=== PATIENT | male | born 1955 | race Caucasian/White ===

== ENCOUNTER 2019-10-11 18:11 | Emergency (ER) | payer BC, SELFPAY ==
--- NOTE | ~2019-10-11 | XR_ITS ---
EXAMINATION: XR chest 2V 10/11/2019 19:02 INDICATION: Dizziness. History of ascending thoracic aortic aneurysm. PROCEDURE: 2 view chest COMPARISON: 12/13/2016 FINDINGS: The lungs are clear. The cardiomediastinal silhouette is within normal limits. There are no pleural effusions. There is no pneumothorax suspected. IMPRESSION: 1: NO ACUTE CARDIOPULMONARY DISEASE. Reviewed, dictated and finalized at location A. LE SCHOOL MUSIC TEACHER
[2019-10-11 18:15] VITALS: BP 199/103; PULSE 60; RESP 12; TEMP 36.8; O2SAT 99
--- NOTE | 2019-10-11 18:27 | ECG_ITS ---
Measurements Intervals [place] Rate: 60 P: 58 SD: 170 QRS: 37 QRSD: 93 T: 44 QT: 397 QTc: 398 Interpretive Statements SINUS RHYTHM NORMAL ECG Electronically Signed On 10-12-2019 7:12:20 PRIMARY HEALTH ORGANISATION MANAGER by Armen Atkins D.O.
[2019-10-11 18:52] LABS: Basophils Absolute Auto 0.01 K/mm3 (0.00-0.10); Basophils Percent Auto 0.2 % (0.0-1.0); Eosinophils Absolute Auto 0.08 K/mm3 (0.02-0.50); Eosinophils Percent Auto 1.2 % (1.0-6.0); Hematocrit 38.5 % (40.0-54.0); Hemoglobin 13.7 g/dL (14.0-18.0); Immature Granulocyte Absolute 0.02 K/mm3 (0.00-0.00); Immature Granulocyte Percent A 0.3 % (0.0-0.0); Lymphocytes Absolute Auto 1.54 K/mm3 (1.10-4.50); Lymphocytes Percent Auto 23.5 % (18.0-42.0); Mean Corpuscular HGB Conc 35.6 g/dL (32.0-36.0); Mean Corpuscular Volume 92.8 fL (78.0-102.0); Mean Platelet Volume 9.1 fl (8.7-11.0); Monocytes Absolute Auto 0.89 K/mm3 (0.10-0.90); Monocytes Percent Auto 13.6 % (2.0-11.0); Neutrophils Percent Auto 61.2 % (50.0-70.0); Platelet Count Result 283 K/mm3 (150-420); Red Blood Count 4.15 M/mm3 (4.70-6.10); Red Cell Distribution Width 12.1 % (11.6-14.4); White Blood Count 6.6 K/mm3 (4.8-10.8)
[2019-10-11 19:06] LABS: Partial Thromboplastin Time 25.8 SEC (22.3-31.6); Prothrombin Time 10.6 Seconds (9.64-11.0)
[2019-10-11 19:12] VITALS: BP 173/96; PULSE 58; RESP 14; O2SAT 99
--- NOTE | 2019-10-11 19:12 | PC.NURSE ---
No change in condition. Awaiting ER physician eval.
[2019-10-11 19:20] LABS: Alanine Aminotransferase 53 U/L (16-63); Alkaline Phosphatase 81 U/L (46-116); Anion Gap 14.3 mmol/L (7-16); Aspartate Amino Transferase 39 U/L (15-37); Bilirubin,Total 0.6 mg/dL (0.00-1.00); Blood Urea Nitrogen 14 mg/dL (7-18); Calcium 9.3 mg/dL (8.5-10.1); Carbon Dioxide 28 mmol/L (21-32); Chloride 98 mmol/L (98-108); Estimated CRCL calculation 73 ml/min; Estimated Glomerular Filt Rate > 60; Glucose 98 mg/dL (70-99); Osmolality Calculated 284 mOsm/kg (285-295); Potassium 3.3 mmol/L (3.5-5.1); Sodium 137 mmol/L (136-145); Total Protein 7.8 g/dL (6.4-8.2)
[2019-10-11 19:21] LABS: Creatine Kinase 151 U/L (39-308); Troponin I < 0.02 ng/mL (0.00-0.056)
--- NOTE | 2019-10-11 19:37 | PC.NURSE ---
Dr Luz at bedside for eval.
[2019-10-11 20:17] VITALS: BP 159/91; PULSE 61; RESP 16
--- NOTE | 2019-10-11 20:17 | ED.GENADULT ---
HPI - General Adult General Chief complaint: Dizziness Stated complaint: light headed Time Seen by Provider: 10/11/19 18:35 Source: patient Mode of arrival: ambulatory Limitations: no limitations History of Present Illness HPI narrative: Ramez is a very pleasant 64-year-old male patient. He he arrives ambulatory to the emergency room with his . He states that he has been having some dizziness since about 4:00 p.m. today. There is no feeling of the room spinning around. Head movements do not make the symptoms worse. The symptoms spontaneously is subsided after about 45 minutes in the emergency room. He has no headache. He has no blurred vision. He has no diplopia. Ramez has a history of a ascending aortic aneurysm. This was discovered to years ago by his primary care physician . An electrocardiogram was done which showed some changes. He was then sent for an echocardiogram. There was some abnormality noted in that. The patient was then referred to Dr. Landeros, linoleum printer. He had a repeat echocardiogram. He then had a CT angio . This showed a ascending aortic aneurysm. His next CT is scheduled for February of this year. Ramez does not complain of any chest pain. He has no shortness of breath. His electrocardiogram is normal. His cardiac enzymes are normal. His chest x-ray is normal. The aneurysm does not show up on the chest x-ray. Ramez was offered CT angio but he declined. He states that he will see tomorrow and will also call , his linoleum printer tomorrow. MD complaint: Dizziness Severity: mild Pain Consistency: other ( no pain) Relieving factors: other ( spontaneous resolution) Exacerbating factors: none Associated symptoms: denies other symptoms and other ( see HPI narrative) Treatments prior to arrival: none Related Data Home Medications Medication Instructions Recorded Confirmed atorvastatin 10 mg PO DAILY 10/11/19 10/11/19 hydrochlorothiazide 25 mg PO DAILY 10/11/19 10/11/19 losartan 100 mg PO DAILY 10/11/19 10/11/19 Allergies Allergy/AdvReac Type Severity Reaction Status Date / Time No Known Allergies Allergy Unverified 02/01/19 10:11 Review of Systems Review of Systems: All systems reviewed & are unremarkable except as noted in HPI and below Constitutional: Constitutional: Reports as per HPI, Reports no additional constitutional complaints, Denies chills, Denies fever(s) and Denies weakness Eyes: Eyes: Reports as per HPI, Reports no additional eye complaints and Denies change in vision ENT: Reports system reviewed and no additional complaints, except as documented, Denies dysphagia, Denies vertigo, Reports dizziness, Denies nasal congestion and Denies sore throat Cardiovascular: Cardiovascular: Reports as per HPI, Denies chest pain and Denies radiating jaw, neck or arm pain Respiratory: Respiratory: Reports as per HPI, Denies cough and Denies dyspnea Gastrointestinal: Gastrointestinal: Reports as per HPI, Denies abdominal pain, Denies diarrhea, Denies nausea and Denies vomiting Genitourinary: Comments: no patient complaints Musculoskeletal: Musculoskeletal: Reports no additional musculoskeletal complaints Comments: no patient complaints Integumentary/Breasts: Skin/Breast: Reports system reviewed and no additional complaints, except as docu, Denies erythema and Denies rash Neurologic: Reports system reviewed and no additional complaints, except as documented, Denies vertigo, Reports dizziness, Denies syncope, Denies headache(s), Denies focal weakness, Denies numbness and Denies weakness Psychiatric: Psychiatric: Reports no additional psychiatric complaints, Denies anxiety and Denies depression Endocrine: Endocrine: Reports no additional endocrine complaints, Denies polydipsia and Denies polyuria Hematologic/Lymphatic: Hematologic/Lymphatic: Reports no additional hematologic/lymphatic complaints, Denies easy bleeding and Denies easy bruising Allergic/Immunolog
[2019-10-11] MEDS: POTASSIUM CHLORIDE 20 MEQ TABLET PO (20:36)
[2019-10-11 20:40] VITALS: BP 163/94; PULSE 65; RESP 12; O2SAT 97
== END 2019-10-11 20:40 | disposition home or self-care (01) ==
PROVIDERS: Emergency Provider Surgery; PCP Internal Medicine
DX: R42 Dizziness and giddiness (principal); I71.2 Thoracic aortic aneurysm, without rupture; I10 Essential (primary) hypertension
CPT/HCPCS: 36415; 71046; 80053; 82550; 82553; 84484; 85025; 85610; 85730; 93005; 99282; 99284; A9270

== ENCOUNTER 2019-11-02 20:18 | Emergency (ER) | payer BC, SELFPAY ==
--- NOTE | ~2019-11-02 | XR_ITS ---
EXAMINATION: XR chest 2V 11/02/2019 21:43 INDICATION: New onset of A. Fib PROCEDURE: 2 view chest COMPARISON: 10/11/2019 FINDINGS: The lungs are clear. The cardiomediastinal silhouette is within normal limits. There are no pleural effusions. There is no pneumothorax suspected. IMPRESSION: 1: NO ACUTE CARDIOPULMONARY DISEASE. Reviewed, dictated and finalized at location A. ED MILK SUPERVISOR
[2019-11-02 20:20] VITALS: BP 149/81; PULSE 140; PULSE 143; RESP 14; TEMP 36.6; O2SAT 97
--- NOTE | 2019-11-02 20:54 | ECG_ITS ---
Measurements Intervals [place] Rate: 148 P: [place]: 0 QRS: 56 QRSD: 90 T: 37 QT: 276 QTc: 433 Interpretive Statements ATRIAL FIBRILLATION WITH RAPID VENTRICULAR RESPONSE ST-T WAVE ABNORMALITY IN ANTEROLATERAL LEADS- CONSIDER ISCHEMIA BASELINE ARTIFACT- II, III, AVR, AVL, AVF, V1-V3 ABNORMAL ECG Electronically Signed On 11-03-2019 7:12:43 CLOTH FINISHING RANGE OPERATOR by Armen Atkins D.O.
[2019-11-02 21:10] LABS: Hematocrit 40.6 % (40.0-54.0); Hemoglobin 14.5 g/dL (14.0-18.0); Mean Corpuscular HGB Conc 35.7 g/dL (32.0-36.0); Mean Corpuscular Hemoglobin 32.7 pg (27.0-31.0); Mean Corpuscular Volume 91.6 fL (78.0-102.0); Mean Platelet Volume 9.5 fl (8.7-11.0); Platelet Count Result 288 K/mm3 (150-420); Red Blood Count 4.43 M/mm3 (4.70-6.10); Red Cell Distribution Width 12.1 % (11.6-14.4); White Blood Count 8.2 K/mm3 (4.8-10.8)
--- NOTE | 2019-11-02 21:21 | ED.ARRPALP ---
HPI - Arrhythmia/Palpitations General Chief Complaint: Arrhythmia/Palpitations Stated Complaint: elevated heart rate Source: patient Mode of arrival: ambulatory Limitations: no limitations History of Present Illness HPI narrative: 64 y.o. with hypertension had acute onset of heart racing at 4 PM today. It has waxed and waned over the past 5 hours. He has no associated chest/neck/arm pain, nausea, vomiting, sweating, shortness of breath. He denies syncope. PMH of ascending aortic aneurism being followed yearly by Dr. Landeros. On losartan and HCTZ He has no hx of diabetes, CAD, CVA or TIA. Drinks about 14 alcoholic beverages/week his adult life. Denies recreational drug use. Blood pressures taken at home average 120-130 systolic/70-80 diastolic Related Data Home Medications Medication Instructions Recorded Confirmed atorvastatin 10 mg PO DAILY 10/11/19 11/02/19 hydrochlorothiazide 25 mg PO DAILY 10/11/19 11/02/19 losartan 100 mg PO DAILY 10/11/19 11/02/19 Allergies Allergy/AdvReac Type Severity Reaction Status Date / Time No Known Allergies Allergy Unverified 02/01/19 10:11 Review of Systems Constitutional: Constitutional: Reports no additional constitutional complaints, Denies chills and Denies fever(s) ENT: Denies nasal congestion and Denies sore throat Cardiovascular: Cardiovascular: Reports no additional cardiovascular complaints Respiratory: Respiratory: Denies cough and Denies dyspnea Gastrointestinal: Gastrointestinal: Denies abdominal pain, Denies nausea and Denies vomiting Musculoskeletal: Musculoskeletal: Reports no additional musculoskeletal complaints Integumentary/Breasts: Skin/Breast: Denies rash Neurologic: Denies syncope Endocrine: Endocrine: Denies fatigue Allergic/Immunologic: Allergic/Immunologic: Reports no additional allergic/immunologic complaints [facility] Past Medical History Medical History (Updated 11/03/19 @ 00:00 by Background Daemon) Hypertension Thoracic aortic aneurysm Surgical History Surgical History (Updated 10/11/19 @ 20:25 by Juan Luz MD) No pertinent past surgical history Family History Family History (Updated 11/03/19 @ 00:33 by Evangelist Newman MD) Father , father , he had COPD No problems noted. Mother , mother of CHF No problems noted. Sibling Atrial fibrillation Social History Social History (Updated 11/03/19 @ 00:34 by Evangelist Newman MD) Smoking status: Former smoker Additional smoking assessment comments: patient does not smoke Alcohol intake: current Drinks per week: 18 Substance use: never Gender identity (if verbalized by the patient): Male Exam Narrative: Exam Narrative: Appears comfortable and relaxed, sitting up in bed. Breathing is not labored. Skin is pink, warm and dry. Const: General: no acute distress Orientation/consciousness: patient oriented x3 HENMT: Face and sinus: no sinus tenderness Mouth: Yes Normal oral and palatal mucosa present Eyes: Conjunctivae: conjunctivae normal Neck: Neck: no lymphadenopathy Other: 2+ carotids, no bruit No palpable thyroid Chest: Chest palpation & inspection: normal inspection of the chest Resp: Effort & Inspection: normal respiratory effort Auscultation: clear to auscultation bilaterally Cardio: Rate: tachycardic Other: irregular rate GI: Other: soft and nontender Back/Spine/Pelvis: Back: no CVA tenderness Skin: General skin exam: normal color Rashes: no rashes Neuro: General: patient oriented x3, moves all extremities and no focal motor deficits Extrem: General: no pedal edema Other: 2+ dorsalis pedis pulses Psych: Mental Status: mental status grossly normal Course Course Emergency Course: Rate went from 110 - 150 range to 60-80 after diltiazem 25 mg IV. Systolic then dropped from 130s to 105. After 1 liter of n.s. sysolic in 120s. Discussed with Dr. Hawthorne at [facility]. Rec
[2019-11-02 21:25] LABS: D Dimer 0.27 mg/L (0.19-0.50)
[2019-11-02 21:27] LABS: BNP 133 pg/mL (0-100)
[2019-11-02 21:35] LABS: Alanine Aminotransferase 45 U/L (16-63); Albumin Level 3.8 g/dL (3.4-5.0); Alkaline Phosphatase 81 U/L (46-116); Anion Gap 13.5 mmol/L (7-16); Aspartate Amino Transferase 31 U/L (15-37); Bilirubin,Total 0.4 mg/dL (0.00-1.00); Blood Urea Nitrogen 16 mg/dL (7-18); Calcium 9.1 mg/dL (8.5-10.1); Carbon Dioxide 29 mmol/L (21-32); Chloride 99 mmol/L (98-108); Estimated CRCL calculation 75 ml/min; Estimated Glomerular Filt Rate > 60; Glucose 118 mg/dL (70-99); Magnesium 1.9 mg/dL (1.8-2.4); Osmolality Calculated 288 mOsm/kg (285-295); Potassium 3.5 mmol/L (3.5-5.1); Sodium 138 mmol/L (136-145); Total Protein 7.6 g/dL (6.4-8.2); Troponin I < 0.02 ng/mL (0.00-0.056)
[2019-11-02 21:36] LABS: Free T4 Free Thyroxine 0.98 ng/dL (0.76-1.46); Thyroid Stimulating Hormone 1.66 uIU/mL (0.36-3.74)
[2019-11-02 21:49] LABS: Add Urine Microscopic? NO; Appearance Urine Clear (Clear); Bilirubin Urine Negative (Negative); Blood Urine Negative (Negative); Color Urine Yellow (Yellow); Glucose Urine UA Negative (Negative); Ketones Urine Negative (Negative); Leukocyte Esterase Ur Negative (Negative); Nitrate Urine Negative (Negative); Protein Urine Negative (Negative); Specific Grav Ur <= 1.005 (1.010-1.020); Urobilinogen Urine 0.2 mg/dL (0.2-1.0); pH Urine 6.5 (5.0-8.0)
[2019-11-02 21:55] LABS: Amphetamine Screen Urine Negative (Negative); Barbiturate Screen Urine Negative (Negative); Benzodiazepines Screen Urine Negative (Negative); Cannabinoid Screen Urine Negative (Negative); Cocaine Screen Urine Negative (Negative); Methadone Screen Urine Negative (Negative); Opiate Screen Urine Negative (Negative); Phencyclidine Screen Urine Negative (Negative)
[2019-11-02 22:00] VITALS: BP 126/78; PULSE 97; RESP 10; O2SAT 97
--- NOTE | 2019-11-02 22:32 | ECG_ITS ---
Measurements Intervals [place] Rate: 78 P: [place]: 0 QRS: 42 QRSD: 101 T: 37 QT: 369 QTc: 421 Interpretive Statements ATRIAL FIBRILLATION ABNORMAL ECG Electronically Signed On 11-03-2019 7:13:03 BEAVER TRAPPER by Armen Atkins D.O.
[2019-11-02 22:45] VITALS: BP 104/68; PULSE 74; RESP 13; O2SAT 99
[2019-11-02] MEDS: SODIUM CHLORIDE 0.9% IV 1,000 ML 999 ML IV CONT (22:45)
[2019-11-02 23:00] VITALS: BP 128/82; PULSE 89; RESP 12; O2SAT 99
[2019-11-02] MEDS: APIXABAN 2.5 MG TABLET 5 MG (23:21)
--- NOTE | 2019-11-02 23:23 | PC.NURSE ---
ERP VERBAL ORDERS STATED GIVE BOLUS 500 ML NS, ORDER SAID 1000 ML NS. RN VERIFIED AND REQUESTED ERP FIX ORDER
[2019-11-02 23:33] VITALS: BP 128/85; PULSE 76; RESP 11; O2SAT 99
== END 2019-11-02 23:31 | disposition home or self-care (01) ==
PROVIDERS: Emergency Provider Family Medicine; PCP Internal Medicine
DX: I48.91 Unspecified atrial fibrillation (principal); Z87.891 Personal history of nicotine dependence
CPT/HCPCS: 36415; 71046; 80053; 80307; 81003; 83735; 83880; 84439; 84443; 84484; 85027; 85380; 93005; 96361; 96374; 99284; A9270; J7030

== ENCOUNTER 2020-02-04 08:11 | Outpatient (CLI) | payer BC, SELFPAY ==
[2020-02-04 09:41] LABS: Alanine Aminotransferase 33 U/L (16-63); Albumin Level 4.2 g/dL (3.4-5.0); Alkaline Phosphatase 105 U/L (46-116); Anion Gap 13.2 mmol/L (7-16); Aspartate Amino Transferase 28 U/L (15-37); Bilirubin,Total 0.4 mg/dL (0.00-1.00); Blood Urea Nitrogen 11 mg/dL (7-18); Calcium 9.2 mg/dL (8.5-10.1); Carbon Dioxide 29 mmol/L (21-32); Chloride 103 mmol/L (98-108); Cholesterol 171 mg/dL (0-200); Estimated Glomerular Filt Rate > 60; Glucose 97 mg/dL (70-99); HDL Direct 79 mg/dL (40-60); LDL Cholesterol Calculated 86 mg/dL (<130); Osmolality Calculated 291 mOsm/kg (285-295); Potassium 4.2 mmol/L (3.5-5.1); Prostate Specific Antigen 1.6 ng/mL (< OR = 4.0); Sodium 141 mmol/L (136-145); Total Protein 7.4 g/dL (6.4-8.2); Triglycerides 32 mg/dL (0-150)
== END 2020-02-04 08:12 | disposition home or self-care (01) ==
PROVIDERS: PCP Internal Medicine; Visit Provider Internal Medicine
DX: Z00.00 Encounter for general adult medical examination without abnormal findings (principal); Z12.5 Encounter for screening for malignant neoplasm of prostate
CPT/HCPCS: 36415; 80053; 80061; 84153; G0103

== ENCOUNTER 2020-03-21 07:51 | Outpatient (CLI) | payer BC, SELFPAY ==
--- NOTE | ~2020-03-21 | CT_ITS ---
EXAMINATION: CTA chest DATE: 03/21/2020 08:37 INDICATION: TECHNIQUE: Computed tomography angiography (CTA) of the chest was performed with 100 mL Omnipaque-350 intravenous contrast timed to evaluate the pulmonary arteries. Coronal maximum intensity projection 3D-reconstructions were created by the technologist. Automated exposure control and iterative reconst ruction technique were employed. Exam dose: 611.09 mGy-cm total exam DLP. COMPARISON: None. FINDINGS: There is a stable 4.2 cm ascending thoracic aortic aneurysm. There is 3.4 cm aortic arch a neurysm. The descending thoracic aorta measures 2.7 cm. Normal heart size. No pericardial or pleural effusion. There is left diaphragmatic pleural calcification. No hilar or mediastinal enlargement. No pulmonary infiltrate or consolidation or pulmonary mass lesion. Diffuse idiopathic skeletal hyperostosis of the thoracolumbar spine. No suspicious osteolytic or osteoblastic lesions. IMPRESSION: Stable 4.2 cm ascending aortic aneurysm Left diaphragmatic pleural calcification Reviewed, dictated and finalized at Location A. Reviewed, dictated and finalized at location B.
[2020-03-21 08:11] LABS: Estimated Glomerular Filt Rate > 60
== END 2020-03-21 07:52 | disposition home or self-care (01) ==
LOC: CHSIMG 07:53
PROVIDERS: PCP Internal Medicine
DX: I77.810 Thoracic aortic ectasia (principal)
CPT/HCPCS: 71275; Q9965

== ENCOUNTER 2020-12-19 06:10 | Emergency (ER) | payer BC, SELFPAY ==
[2020-12-19] VITALS (16 sets, daily range): BP systolic 112–140; BP diastolic 71–84; PULSE 67–103; RESP 8–18; TEMP 36.6; O2SAT 93–98
--- NOTE | 2020-12-19 06:40 | ECG_ITS ---
Measurements Intervals [place] Rate: 69 P: [place]: 0 QRS: 48 QRSD: 99 T: 64 QT: 374 QTc: 401 Interpretive Statements ATRIAL FIBRILLATION MINIMAL Q WAVES- INFERIOR LEADS ABNORMAL ECG Electronically Signed On 12-19-2020 6:53:12 CDT by Armen Atkins D.O.
--- NOTE | 2020-12-19 06:57 | ED.ARRPALP ---
HPI - Arrhythmia/Palpitations General Chief Complaint: Arrhythmia/Palpitations Stated Complaint: irregular heart beat since last night Source: patient Mode of arrival: ambulatory Limitations: no limitations History of Present Illness HPI narrative: Patient states he has a prior history of Afib. Last pm about 930pm he started noticing fluttering with his heart beat. It has continued and he comes in this am because of that. He has not been short of breath or had any chest pain. He has not noticed his heart racing. MD complaint: skipped beats and palpitations Onset (ago): hour(s) Duration: constant Severity: mild Context: occurred during rest Arrhythmia history: atrial fibrillation Associated symptoms: denies other symptoms Related Data Home Medications Medication Instructions Recorded Confirmed atorvastatin 20 mg PO DAILY 10/11/19 12/19/20 hydrochlorothiazide 25 mg PO DAILY 10/11/19 12/19/20 losartan 100 mg PO DAILY 10/11/19 12/19/20 Allergies Allergy/AdvReac Type Severity Reaction Status Date / Time No Known Allergies Allergy Unverified 02/01/19 10:11 Review of Systems Constitutional: Constitutional: Reports no additional constitutional complaints Eyes: Eyes: Reports no additional eye complaints ENT: Reports system reviewed and no additional complaints, except as documented Cardiovascular: Cardiovascular: Reports no additional cardiovascular complaints Respiratory: Respiratory: Reports no additional respiratory complaints Gastrointestinal: Gastrointestinal: Reports no additional gastrointestinal complaints Genitourinary: Genitourinary: Reports no additional male genitourinary complaints Musculoskeletal: Musculoskeletal: Reports no additional musculoskeletal complaints Integumentary/Breasts: Skin/Breast: Reports system reviewed and no additional complaints, except as docu Neurologic: Reports system reviewed and no additional complaints, except as documented Psychiatric: Psychiatric: Reports no additional psychiatric complaints Endocrine: Endocrine: Reports no additional endocrine complaints Hematologic/Lymphatic: Hematologic/Lymphatic: Reports no additional hematologic/lymphatic complaints Allergic/Immunologic: Allergic/Immunologic: Reports no additional allergic/immunologic complaints [facility] Past Medical History Medical History Hypertension Thoracic aortic aneurysm Surgical History Surgical History No pertinent past surgical history Family History Family History Father , father , he had COPD No problems noted. Mother , mother of CHF No problems noted. Sibling Atrial fibrillation Social History Social History Smoking status: Former smoker Additional smoking assessment comments: patient does not smoke Alcohol intake: current Drinks per week: 18 Substance use: never Gender identity (if verbalized by the patient): Male Exam Const: General: no acute distress Orientation/consciousness: patient oriented x3 HENMT: Head: normal to inspection Ears: external ears normal and TM's normal bilaterally General nose exam: Normal nares present Face and sinus: normal facial exam Throat: posterior oropharynx normal Eyes: Conjunctivae: conjunctivae normal Neck: Neck: normal visual inspection Chest: Chest palpation & inspection: normal inspection of the chest Resp: Effort & Inspection: normal respiratory effort Auscultation: clear to auscultation bilaterally Cardio: Rate: regular rate Rhythm: regular rhythm GI: GI Palp: Yes Soft to palpation (nontender) Skin: General skin exam: normal color Neuro: General: patient oriented x3 Extrem: General: normal to inspection Psych: Appearance: grossly normal Mental Status: mental statu
[2020-12-19 07:09] LABS: Basophils Absolute Auto 0.01 K/mm3 (0.00-0.10); Basophils Percent Auto 0.2 % (0.0-1.0); Eosinophils Absolute Auto 0.14 K/mm3 (0.02-0.50); Eosinophils Percent Auto 2.7 % (1.0-6.0); Hematocrit 42.3 % (37.0-46.0); Hemoglobin 14.9 g/dL (12.4-15.3); Immature Granulocyte Absolute 0.02 K/mm3 (0.00-0.00); Immature Granulocyte Percent A 0.4 % (0.0-0.0); Lymphocytes Absolute Auto 1.35 K/mm3 (1.10-4.50); Lymphocytes Percent Auto 25.7 % (18.0-42.0); Mean Corpuscular HGB Conc 35.2 g/dL (32.0-36.0); Mean Platelet Volume 9.1 fl (8.7-11.0); Monocytes Absolute Auto 0.64 K/mm3 (0.10-0.90); Monocytes Percent Auto 12.2 % (2.0-11.0); Neutrophils Absolute Auto 3.1 K/mm3 (1.7-7.2); Neutrophils Percent Auto 58.8 % (50.0-70.0); Platelet Count Result 297 K/mm3 (150-420); Red Blood Count 4.65 M/mm3 (4.70-6.10); Red Cell Distribution Width 12.3 % (11.6-14.4); White Blood Count 5.3 K/mm3 (4.8-10.8)
--- NOTE | 2020-12-19 07:15 | PC.NURSE ---
Report given to KACEY Gordon
[2020-12-19 07:34] LABS: Alanine Aminotransferase 31 U/L (16-63); Albumin Level 3.4 g/dL (3.4-5.0); Alkaline Phosphatase 97 U/L (46-116); Anion Gap 8 mmol/L (8-16); Aspartate Amino Transferase 23 U/L (15-37); Bilirubin,Total 0.4 mg/dL (0.00-1.00); Blood Urea Nitrogen 12 mg/dL (7-18); Calcium 9.2 mg/dL (8.5-10.1); Carbon Dioxide 29 mmol/L (21-32); Chloride 97 mmol/L (98-108); Estimated CRCL calculation 79 ml/min; Estimated Glomerular Filt Rate > 60; Glucose 94 mg/dL (70-99); Magnesium 1.7 mg/dL (1.8-2.4); Osmolality Calculated 277 mOsm/kg (285-295); Potassium 3.6 mmol/L (3.5-5.1); Sodium 134 mmol/L (136-145); Total Protein 7.4 g/dL (6.4-8.2); Troponin I 31.1 ng/L (0.00-60.4)
--- NOTE | 2020-12-19 08:05 | PC.NURSE ---
Pt resting comfortably on stretcher, family at bedside.
--- NOTE | 2020-12-19 08:13 | PC.NURSE ---
Pt ambulatory to bathroom with steady gait.
[2020-12-19 08:18] LABS: BNP 220 pg/mL (0-100)
--- NOTE | 2020-12-19 08:23 | PC.NURSE ---
Dr. Landeros paged to speak with dr owen
[2020-12-19] MEDS: POTASSIUM CHLORIDE 20 MEQ TABLET PO (08:45)
[2020-12-19 09:05] LABS: Thyroid Stimulating Hormone Reflex 1.56 u/IU/mL (0.36-3.74)
--- NOTE | 2020-12-20 12:09 | WPDHOLTEREM ---
Holter/Event Monitor Holter/Event Monitor Date of procedure: 12/19/20 Procedure Type: 24 hour holter monitor Indications: Palpitations Conclusion: 1. 24 hour holter monitor on 12/19/20. 2. Predominant rhythm is sinus rhythm. HR range 52-178 bpm; average HR 87 bpm. 3. There are 9 episodes of atrial fibrillation with burden of 47.7% of the time. Fastest rate is 178 bpm and longest lasting 6 hours and 42 minutes. 4. There are 55 premature ventricular complexes. No ventricular tachycardia. 5. No sinoatrial or atrioventricular blocks. No significant pauses greater than 2 seconds. 6. Patient reports symptoms of palpitations which demonstrate atrial fibrillation HR range 100-164 bpm.
== END 2020-12-19 09:14 | disposition home or self-care (01) ==
PROVIDERS: Emergency Medicine; Emergency Provider Emergency Medicine; PCP Internal Medicine
DX: I48.91 Unspecified atrial fibrillation (principal); Z87.891 Personal history of nicotine dependence
CPT/HCPCS: 36415; 80053; 83735; 83880; 84443; 84484; 85025; 93005; 93225; 93226; 99283; 99284; A9270

== ENCOUNTER 2021-01-03 07:44 | Outpatient (CLI) | payer BC, SELFPAY ==
[2021-01-03 07:54] LABS: Basophils Absolute Auto 0.01 K/mm3 (0.00-0.10); Basophils Percent Auto 0.2 % (0.0-1.0); Eosinophils Absolute Auto 0.16 K/mm3 (0.02-0.50); Eosinophils Percent Auto 3.2 % (1.0-6.0); Hematocrit 42.3 % (37.0-46.0); Hemoglobin 14.6 g/dL (12.4-15.3); Immature Granulocyte Absolute 0.02 K/mm3 (0.00-0.00); Immature Granulocyte Percent A 0.4 % (0.0-0.0); Lymphocytes Absolute Auto 1.44 K/mm3 (1.10-4.50); Lymphocytes Percent Auto 28.9 % (18.0-42.0); Mean Corpuscular HGB Conc 34.5 g/dL (32.0-36.0); Mean Corpuscular Hemoglobin 32.2 pg (27.0-31.0); Mean Corpuscular Volume 93.4 fL (78.0-102.0); Mean Platelet Volume 9.2 fl (8.7-11.0); Monocytes Absolute Auto 0.71 K/mm3 (0.10-0.90); Monocytes Percent Auto 14.2 % (2.0-11.0); Neutrophils Absolute Auto 2.7 K/mm3 (1.7-7.2); Neutrophils Percent Auto 53.1 % (50.0-70.0); Platelet Count Result 353 K/mm3 (150-420); Red Blood Count 4.53 M/mm3 (4.70-6.10); Red Cell Distribution Width 11.9 % (11.6-14.4)
[2021-01-03 07:56] LABS: Add Urine Microscopic? NO; Appearance Urine Clear (Clear); Bilirubin Urine Negative (Negative); Blood Urine Negative (Negative); Color Urine Yellow (Yellow); Glucose Urine UA Negative (Negative); Ketones Urine Negative (Negative); Leukocyte Esterase Ur Negative LEU/UL (Negative); Nitrate Urine Negative (Negative); Protein Urine Negative (Negative); Specific Grav Ur 1.015 (1.010-1.020); Urobilinogen Urine 0.2 mg/dL (0.2-1.0)
[2021-01-03 09:07] LABS: Alanine Aminotransferase 31 U/L (16-63); Albumin Level 3.8 g/dL (3.4-5.0); Alkaline Phosphatase 91 U/L (46-116); Anion Gap 8 mmol/L (8-16); Aspartate Amino Transferase 23 U/L (15-37); Bilirubin,Total 0.5 mg/dL (0.00-1.00); Blood Urea Nitrogen 11 mg/dL (7-18); Calcium 9.8 mg/dL (8.5-10.1); Carbon Dioxide 33 mmol/L (21-32); Chloride 100 mmol/L (98-108); Cholesterol 159 mg/dL (0-200); Estimated Glomerular Filt Rate > 60; Glucose 98 mg/dL (70-99); HDL Direct 55 mg/dL (40-60); LDL Cholesterol Calculated 93 mg/dL (<130); Osmolality Calculated 291 mOsm/kg (285-295); Potassium 4.2 mmol/L (3.5-5.1); Sodium 141 mmol/L (136-145); Thyroid Stimulating Hormone 0.94 uIU/mL (0.36-3.74); Total Protein 7.2 g/dL (6.4-8.2); Triglycerides 54 mg/dL (0-150)
== END 2021-01-03 07:45 | disposition home or self-care (01) ==
LOC: CHSLAB 07:45
PROVIDERS: PCP Internal Medicine; Visit Provider Internal Medicine
DX: Z00.00 Encounter for general adult medical examination without abnormal findings (principal); Z12.5 Encounter for screening for malignant neoplasm of prostate
CPT/HCPCS: 36415; 80053; 80061; 81003; 84153; 84443; 85025; G0103

== ENCOUNTER 2021-07-18 08:30 | Outpatient (CLI) | payer BC, SELFPAY ==
[2021-07-18 08:49] LABS: Basophils Absolute Auto 0.02 K/mm3 (0.00-0.10); Basophils Percent Auto 0.4 % (0.0-1.0); Eosinophils Percent Auto 3.6 % (1.0-6.0); Hematocrit 44.4 % (37.0-46.0); Hemoglobin 15.3 g/dL (12.4-15.3); Immature Granulocyte Absolute 0.02 K/mm3 (0.00-0.00); Immature Granulocyte Percent A 0.4 % (0.0-0.0); Lymphocytes Absolute Auto 1.56 K/mm3 (1.10-4.50); Lymphocytes Percent Auto 28.4 % (18.0-42.0); Mean Corpuscular HGB Conc 34.5 g/dL (32.0-36.0); Mean Corpuscular Hemoglobin 31.5 pg (27.0-31.0); Mean Corpuscular Volume 91.4 fL (78.0-102.0); Monocytes Absolute Auto 0.64 K/mm3 (0.10-0.90); Monocytes Percent Auto 11.7 % (2.0-11.0); Neutrophils Absolute Auto 3.1 K/mm3 (1.7-7.2); Neutrophils Percent Auto 55.5 % (50.0-70.0); Platelet Count Result 333 K/mm3 (150-420); Red Blood Count 4.86 M/mm3 (4.70-6.10); Red Cell Distribution Width 12.3 % (11.6-14.4); White Blood Count 5.5 K/mm3 (4.8-10.8)
[2021-07-18 09:08] LABS: Prothrombin Time 10.6 Seconds (9.50-12.10)
[2021-07-18 09:23] LABS: Anion Gap 7 mmol/L (8-16); Blood Urea Nitrogen 11 mg/dL (7-18); Calcium 9.2 mg/dL (8.5-10.1); Carbon Dioxide 32 mmol/L (21-32); Chloride 101 mmol/L (98-108); Estimated Glomerular Filt Rate > 60; Glucose 94 mg/dL (70-99); Osmolality Calculated 289 mOsm/kg (285-295); Potassium 3.9 mmol/L (3.5-5.1); Sodium 140 mmol/L (136-145)
== END 2021-07-18 08:31 | disposition home or self-care (01) ==
PROVIDERS: PCP Internal Medicine
DX: I48.0 Paroxysmal atrial fibrillation (principal)
CPT/HCPCS: 36415; 80048; 85025; 85610

== ENCOUNTER 2022-01-25 08:08 | Outpatient (CLI) | payer BC, SELFPAY ==
[2022-01-25 08:39] LABS: Basophils Absolute Auto 0.01 K/mm3 (0.00-0.10); Basophils Percent Auto 0.2 % (0.0-1.0); Eosinophils Absolute Auto 0.13 K/mm3 (0.02-0.50); Eosinophils Percent Auto 2.4 % (1.0-6.0); Hematocrit 40.9 % (37.0-46.0); Hemoglobin 14.3 g/dL (12.4-15.3); Immature Granulocyte Absolute 0.02 K/mm3 (0.00-0.00); Immature Granulocyte Percent A 0.4 % (0.0-0.0); Lymphocytes Absolute Auto 1.47 K/mm3 (1.10-4.50); Lymphocytes Percent Auto 27.2 % (18.0-42.0); Mean Corpuscular Hemoglobin 32.6 pg (27.0-31.0); Mean Corpuscular Volume 93.4 fL (78.0-102.0); Mean Platelet Volume 9.3 fl (8.7-11.0); Monocytes Absolute Auto 0.79 K/mm3 (0.10-0.90); Monocytes Percent Auto 14.6 % (2.0-11.0); Neutrophils Percent Auto 55.2 % (50.0-70.0); Platelet Count Result 318 K/mm3 (150-420); Red Blood Count 4.38 M/mm3 (4.70-6.10); White Blood Count 5.4 K/mm3 (4.8-10.8)
[2022-01-25 08:46] LABS: Add Urine Microscopic? NO; Appearance Urine Clear (Clear); Bilirubin Urine Negative (Negative); Blood Urine Negative (Negative); Color Urine Yellow (Yellow); Glucose Urine UA Negative (Negative); Ketones Urine Negative (Negative); Leukocyte Esterase Ur Negative LEU/UL (Negative); Nitrate Urine Negative (Negative); Protein Urine Negative (Negative); Urobilinogen Urine 0.2 mg/dL (0.2-1.0)
[2022-01-25 09:06] LABS: Alanine Aminotransferase 29 U/L (16-63); Albumin Level 3.9 g/dL (3.4-5.0); Alkaline Phosphatase 97 U/L (46-116); Anion Gap 7 mmol/L (8-16); Aspartate Amino Transferase 25 U/L (15-37); Bilirubin,Total 0.4 mg/dL (0.00-1.00); Blood Urea Nitrogen 10 mg/dL (7-18); Calcium 9.6 mg/dL (8.5-10.1); Carbon Dioxide 29 mmol/L (21-32); Chloride 99 mmol/L (98-108); Cholesterol 160 mg/dL (0-200); Estimated Glomerular Filt Rate > 60; Glucose 97 mg/dL (70-99); HDL Direct 67 mg/dL (40-60); LDL Cholesterol Calculated 83 mg/dL (<130); Osmolality Calculated 279 mOsm/kg (285-295); Potassium 3.6 mmol/L (3.5-5.1); Prostate Specific Antigen 1.5 ng/mL (< OR = 4.0); Sodium 135 mmol/L (136-145); Thyroid Stimulating Hormone 0.98 uIU/mL (0.36-3.74); Total Protein 7.8 g/dL (6.4-8.2); Triglycerides 48 mg/dL (0-150)
== END 2022-01-25 08:09 | disposition home or self-care (01) ==
LOC: CHSLAB 08:11
PROVIDERS: PCP Internal Medicine; Visit Provider Internal Medicine
DX: Z00.00 Encounter for general adult medical examination without abnormal findings (principal); Z12.5 Encounter for screening for malignant neoplasm of prostate
CPT/HCPCS: 36415; 80053; 80061; 81003; 84153; 84443; 85025; G0103

== ENCOUNTER 2023-02-12 07:52 | Outpatient (CLI) | payer BC, SELFPAY ==
[2023-02-12 08:03] LABS: Basophils Absolute Auto 0.01 K/mm3 (0.00-0.10); Basophils Percent Auto 0.2 % (0.0-1.0); Eosinophils Absolute Auto 0.12 K/mm3 (0.02-0.50); Eosinophils Percent Auto 2.5 % (1.0-6.0); Hematocrit 41.6 % (37.0-46.0); Hemoglobin 14.2 g/dL (12.4-15.3); Immature Granulocyte Absolute 0.02 K/mm3 (0.00-0.00); Immature Granulocyte Percent A 0.4 % (0.0-0.0); Lymphocytes Percent Auto 26.9 % (18.0-42.0); Mean Corpuscular HGB Conc 34.1 g/dL (32.0-36.0); Mean Corpuscular Hemoglobin 32.1 pg (27.0-31.0); Mean Corpuscular Volume 94.1 fL (78.0-102.0); Mean Platelet Volume 8.9 fl (8.7-11.0); Monocytes Absolute Auto 0.69 K/mm3 (0.10-0.90); Monocytes Percent Auto 14.3 % (2.0-11.0); Neutrophils Absolute Auto 2.7 K/mm3 (1.7-7.2); Neutrophils Percent Auto 55.7 % (50.0-70.0); Platelet Count Result 331 K/mm3 (150-420); Red Blood Count 4.42 M/mm3 (4.70-6.10); Red Cell Distribution Width 12.3 % (11.6-14.4); White Blood Count 4.8 K/mm3 (4.8-10.8)
[2023-02-12 09:09] LABS: Alanine Aminotransferase 39 U/L (16-63); Albumin Level 4.1 g/dL (3.4-5.0); Alkaline Phosphatase 83 U/L (46-116); Anion Gap 11 mmol/L (8-16); Aspartate Amino Transferase 34 U/L (15-37); Bilirubin,Total 0.6 mg/dL (0.00-1.00); Blood Urea Nitrogen 11 mg/dL (7-18); Calcium 9.3 mg/dL (8.5-10.1); Carbon Dioxide 29 mmol/L (21-32); Chloride 98 mmol/L (98-108); Cholesterol 187 mg/dL (0-200); Estimated Glomerular Filt Rate > 60; Glucose 93 mg/dL (70-99); HDL Direct 85 mg/dL (40-60); LDL Cholesterol Calculated 92 mg/dL (<130); Osmolality Calculated 285 mOsm/kg (285-295); Prostate Specific Antigen 2.1 ng/mL (< OR = 4.0); Sodium 138 mmol/L (136-145); Thyroid Stimulating Hormone 1.43 uIU/mL (0.36-3.74); Total Protein 7.5 g/dL (6.4-8.2); Triglycerides 50 mg/dL (0-150)
[2023-02-12 17:35] LABS: Appearance Urine Clear (Clear); Bilirubin Urine Negative (Negative); Blood Urine Negative (Negative); Color Urine Light Yellow (Yellow); Glucose Urine UA Negative (Negative); Ketones Urine Negative (Negative); Leukocyte Esterase Ur Negative (Negative); Nitrate Urine Negative (Negative); Protein Urine Negative (Negative); Urobilinogen Urine 0.2 mg/dL (0.2-1.0)
[2023-02-12 17:40] LABS: Add Urine Microscopic? NO
== END 2023-02-12 07:53 | disposition home or self-care (01) ==
LOC: CHSLAB 07:55
PROVIDERS: PCP Internal Medicine; Visit Provider Internal Medicine
DX: Z12.5 Encounter for screening for malignant neoplasm of prostate (principal); I10 Essential (primary) hypertension; E78.5 Hyperlipidemia, unspecified
CPT/HCPCS: 36415; 80053; 80061; 81003; 84153; 84443; 85025; G0103

== ENCOUNTER 2024-02-25 08:06 | Outpatient (CLI) | payer BC, SELFPAY ==
[2024-02-25 08:18] LABS: Basophils Absolute Auto 0.02 K/mm3 (0.00-0.10); Basophils Percent Auto 0.3 % (0.0-1.0); Eosinophils Absolute Auto 0.11 K/mm3 (0.02-0.50); Eosinophils Percent Auto 1.5 % (1.0-6.0); Hematocrit 41.9 % (37.0-46.0); Hemoglobin 14.6 g/dL (12.4-15.3); Immature Granulocyte Absolute 0.02 K/mm3 (0.00-0.00); Immature Granulocyte Percent A 0.3 % (0.0-0.0); Lymphocytes Absolute Auto 0.89 K/mm3 (1.10-4.50); Lymphocytes Percent Auto 11.9 % (18.0-42.0); Mean Corpuscular HGB Conc 34.8 g/dL (32-36); Mean Corpuscular Hemoglobin 32.1 pg (27.0-31.0); Mean Corpuscular Volume 92.1 fL (78.0-102.0); Mean Platelet Volume 8.7 fl (8.7-11.0); Monocytes Absolute Auto 0.93 K/mm3 (0.10-0.90); Monocytes Percent Auto 12.5 % (2.0-11.0); Neutrophils Absolute Auto 5.48 K/mm3 (1.70-7.20); Neutrophils Percent Auto 73.5 % (50.0-70.0); Platelet Count Result 353 K/mm3 (150-420); Red Blood Count 4.55 M/mm3 (4.70-6.10); White Blood Count 7.5 K/mm3 (4.8-10.8)
[2024-02-25 09:02] LABS: Alanine Aminotransferase 32 U/L (16-63); Albumin Level 3.9 g/dL (3.4-5.0); Alkaline Phosphatase 93 U/L (46-116); Anion Gap 10 mmol/L (4-12); Aspartate Amino Transferase 28 U/L (15-37); Bilirubin,Total 0.7 mg/dL (0.00-1.00); Blood Urea Nitrogen 13 mg/dL (7-18); Calcium 9.5 mg/dL (8.5-10.1); Carbon Dioxide 30 mmol/L (21-32); Chloride 97 mmol/L (98-108); Cholesterol 188 mg/dL (0-200); Estimated Glomerular Filt Rate > 60; Glucose 107 mg/dL (70-99); HDL Direct 78 mg/dL (40-60); LDL Cholesterol Calculated 95 mg/dL (<130); Osmolality Calculated 284 mOsm/kg (285-295); Potassium 3.2 mmol/L (3.5-5.1); Prostate Specific Antigen 4.2 ng/mL (< OR = 4.0); Sodium 137 mmol/L (136-145); Thyroid Stimulating Hormone 1.32 uIU/mL (0.36-3.74); Total Protein 7.7 g/dL (6.4-8.2); Triglycerides 77 mg/dL (0-150)
== END 2024-02-25 08:07 | disposition home or self-care (01) ==
LOC: CHSLAB 08:09
PROVIDERS: PCP Internal Medicine; Visit Provider Internal Medicine
DX: Z00.00 Encounter for general adult medical examination without abnormal findings (principal); Z12.5 Encounter for screening for malignant neoplasm of prostate
CPT/HCPCS: 36415; 80053; 80061; 84153; 84443; 85025; G0103

== ENCOUNTER 2024-03-26 07:59 | Outpatient (CLI) | payer BC, SELFPAY ==
[2024-03-26 08:23] LABS: Hemoglobin A1C 5.4 % (<5.7)
[2024-03-26 09:15] LABS: Alanine Aminotransferase 85 U/L (16-63); Alkaline Phosphatase 85 U/L (46-116); Anion Gap 8 mmol/L (4-12); Aspartate Amino Transferase 52 U/L (15-37); Bilirubin,Total 0.4 mg/dL (0.00-1.00); Blood Urea Nitrogen 9 mg/dL (7-18); Calcium 9.9 mg/dL (8.5-10.1); Carbon Dioxide 32 mmol/L (21-32); Chloride 97 mmol/L (98-108); Estimated Glomerular Filt Rate > 60; Glucose 89 mg/dL (70-99); Magnesium 1.6 mg/dL (1.8-2.4); Osmolality Calculated 281 mOsm/kg (285-295); Potassium 3.9 mmol/L (3.5-5.1); Sodium 137 mmol/L (136-145); Total Protein 7.7 g/dL (6.4-8.2)
[2024-03-26 14:33] LABS: Ferritin 225 ng/mL (26-388)
[2024-03-27 10:19] LABS: Hepatitis B Surface Antigen NON-REACTIVE (NON-REACTIVE)
[2024-03-27 11:59] LABS: Hepatitis A Antibody IgM NON-REACTIVE (NON-REACTIVE); Hepatitis B Core Antibody NON-REACTIVE (NON-REACTIVE); Hepatitis C Virus Antibody NON-REACTIVE (NON-REACTIVE)
== END 2024-03-26 08:00 | disposition home or self-care (01) ==
LOC: CHSLAB 08:01
PROVIDERS: PCP Internal Medicine; Visit Provider Internal Medicine
DX: E78.5 Hyperlipidemia, unspecified (principal); R73.01 Impaired fasting glucose
CPT/HCPCS: 36415; 80053; 80074; 82728; 83036; 83735

== ENCOUNTER 2024-04-08 14:35 | Outpatient (CLI) | payer BC, SELFPAY ==
[2024-04-08 15:33] LABS: Alanine Aminotransferase 26 U/L (16-63); Albumin Level 3.7 g/dL (3.4-5.0); Alkaline Phosphatase 86 U/L (46-116); Anion Gap 4 mmol/L (4-12); Aspartate Amino Transferase 23 U/L (15-37); Bilirubin,Total 0.4 mg/dL (0.00-1.00); Blood Urea Nitrogen 16 mg/dL (7-18); Calcium 9.1 mg/dL (8.5-10.1); Carbon Dioxide 32 mmol/L (21-32); Chloride 99 mmol/L (98-108); Estimated Glomerular Filt Rate > 60; Glucose 130 mg/dL (70-99); Osmolality Calculated 283 mOsm/kg (285-295); Potassium 3.9 mmol/L (3.5-5.1); Sodium 135 mmol/L (136-145)
== END 2024-04-08 14:36 | disposition home or self-care (01) ==
LOC: CHSLAB 14:36
PROVIDERS: PCP Internal Medicine; Visit Provider Internal Medicine
DX: R94.5 Abnormal results of liver function studies (principal)
CPT/HCPCS: 36415; 80053

== ENCOUNTER 2024-05-24 10:48 | Outpatient (CLI) | payer BC, SELFPAY | END 2024-05-24 10:49 | disposition home or self-care (01) | LOC: CHSCARD 10:51 | PROVIDERS: PCP Internal Medicine; Visit Provider Nurse Practitioner Family | DX: R05.9 Cough, unspecified (principal); R94.2 Abnormal results of pulmonary function studies | CPT/HCPCS: 94060; 94726; 94729 ==

== ENCOUNTER 2024-08-04 15:01 | Outpatient (CLI) | payer BC, SELFPAY ==
--- NOTE | ~2024-08-04 | XR_ITS ---
EXAMINATION: XR lumbar spine 2-3V DATE: 08/04/2024 15:22 INDICATION: Right hip pain. TECHNIQUE: 3 views of lumbar spine were obtained. COMPARISON: None. FINDINGS: There is 8 degrees levocurvature of thoracolumbar spine. There is mild chronic anterior wed ging of T9-T11 vertebral bodies. There is mildly decreased disc height from L2-L3 through L4-L5. Ther e are endplate osteophytes at all levels. There is multilevel severe facet joint osteoarthritis. IMPRESSION: 1. Mild lumbar spondylosis Reviewed, dictated and finalized at location A. TRONIC DATA PROCESSING AUDITOR IMPRESSION: 1. Mild lumbar spondylosis
--- NOTE | ~2024-08-04 | XR_ITS ---
EXAMINATION: XR hip RT min 2V DATE: 08/04/2024 15:23 INDICATION: Right hip pain. TECHNIQUE: 2 views of right hip were obtained. COMPARISON: None. FINDINGS: Alignment is normal. No fracture. There is mild right hip osteoarthritis. IMPRESSION: 1. Mild right hip osteoarthritis. Reviewed, dictated and finalized at location A. RINTENDENT SALES
== END 2024-08-04 15:02 | disposition home or self-care (01) ==
LOC: CHSIMG 15:03
PROVIDERS: PCP Internal Medicine; Visit Provider Internal Medicine
DX: M25.551 Pain in right hip (principal); M43.06 Spondylolysis, lumbar region; M16.11 Unilateral primary osteoarthritis, right hip
CPT/HCPCS: 72100; 73502

== ENCOUNTER 2024-08-16 13:33 | Outpatient (RCR) | payer BC, SELFPAY ==
--- NOTE | 2024-08-16 14:40 | PTOPEVAL1 ---
Assessment and note entered by Fred Berger Evaluation Information Assessment Status Evaluation ICD-10 Condition Codes (PT) Pain in low back M54.50,Pain in right hip M25.551 Onset 06/29/24 Subjective Information Pt. reports that he developed some soreness in the low back around mid June. He states that he had been to the chiropractor with no relief. He states that his daughter is a PT and had been receiving dry needling which has been affective. He reports that pain does occasional wake him at night. He has to frequently change position. Initially his pain would radiate down the right leg, but it is now much less intense. He has been doing some general stretching exercises. He reports that nothing particular increases his pain . He has undergone xray that revealed arthritis. He reports that his goal is to be pain free. Reported Pain Level Pain Score 4: Self Report Assessment PT Clinical Summary Pt. is a 69 year old male who enters the clinic with a medical diagnosis of right hip pain. He currently presents with indication of lumbar radiculopathy on this date. He presents with impaired proximal l.e. strength, impaired gait, pain, impaired trunk mobility and functional decline on this date. Continued skilled PT is indicated in order to improve these areas to allow for improved comfort with IADL performance. Plan of Care Interventions Electrical Stimulation,Gait Training,Hot Pack/Cold Pack,Manual Therapy,Mechanical Traction,Neuro Re- education,Patient/Caregiver Educati,Therapeutic Activities,Therapeutic Exercise PT Services Indicated Yes Treatment Frequency and 2x/week x 8 visits Duration These treatments will address the objective and functional deficits as defined above. The patient will be advanced safely and appropriately in order for the patient to progress towards his/her prior level of function. Additional exercises will be introduced and as well as a comprehensive home exercise program upon discharge, if needed, ?to ensure carryover of functional gains achieved in the clinic. This treatment plan has been reviewed and agreement upon by the patient.
--- NOTE | 2024-08-16 14:41 | OPREHPOC ---
Outpatient Therapy Plan of Care This is a Multidisciplinary Plan of Care that may contain components documented by all disciplines (PT, OT, and ST.) PT Problem 1 PT Problem #1 Knowledge Deficit PT Goal 1 Goal / Goal Update Pt. will be independent with a HEP addressing core strength and stability as well as trunk mobility. Target Visit 2 PT Problem 2 PT Problem #2 Pain PT Goal 1 Goal / Goal Update Pt. will report 50% reduction in pain level at worst. Pt. will be able to bend to the floor to lift small object without pain. Pt. will be able to sleep through the night without pain disturbance. Target Visit 8 PT Problem 3 PT Problem #3 Impaired Strength PT Goal 1 Goal / Goal Update Pt. will present with 4+/5 right hip abduction strength. Target Visit 8
== END 2024-11-14 23:59 | disposition home or self-care (01) ==
LOC: CHSPT 13:33
PROVIDERS: Visit Provider Internal Medicine
DX: M25.551 Pain in right hip (principal)
CPT/HCPCS: 97014; 97110; 97140; 97161; G0283

== ENCOUNTER 2025-03-11 06:54 | Outpatient (CLI) | payer BC, SELFPAY ==
[2025-03-11 07:07] LABS: Add Urine Microscopic? YES; Appearance Urine Clear (Clear); Bilirubin Urine Negative (Negative); Blood Urine Negative (Negative); Color Urine Light Yellow (Yellow); Glucose Urine UA Negative (Negative); Ketones Urine Negative (Negative); Leukocyte Esterase Ur Trace (Negative); Nitrate Urine Negative (Negative); Protein Urine Negative (Negative); Urobilinogen Urine 0.2 mg/dL (0.2-1.0); pH Urine 7.5 (5.0-8.0)
[2025-03-11 07:08] LABS: Basophils Absolute Auto 0.01 K/mm3 (0.00-0.10); Basophils Percent Auto 0.1 % (0.0-1.0); Eosinophils Percent Auto 1.5 % (1.0-6.0); Hematocrit 42.3 % (37.0-46.0); Hemoglobin 14.6 g/dL (12.4-15.3); Immature Granulocyte Absolute 0.03 K/mm3 (0.00-0.00); Immature Granulocyte Percent A 0.4 % (0.0-0.0); Lymphocytes Absolute Auto 1.57 K/mm3 (1.10-4.50); Lymphocytes Percent Auto 22.9 % (18.0-42.0); Mean Corpuscular HGB Conc 34.5 g/dL (32-36); Mean Corpuscular Hemoglobin 32.2 pg (27.0-31.0); Mean Corpuscular Volume 93.2 fL (78.0-102.0); Mean Platelet Volume 8.8 fl (8.7-11.0); Monocytes Absolute Auto 0.81 K/mm3 (0.10-0.90); Monocytes Percent Auto 11.8 % (2.0-11.0); Neutrophils Absolute Auto 4.34 K/mm3 (1.70-7.20); Neutrophils Percent Auto 63.3 % (50.0-70.0); Platelet Count Result 364 K/mm3 (150-420); Red Blood Count 4.54 M/mm3 (4.70-6.10); Red Cell Distribution Width 12.2 % (11.6-14.4); White Blood Count 6.9 K/mm3 (4.8-10.8)
[2025-03-11 07:12] LABS: Bacteria Urine None Seen /hpf; RBC Urine None seen /hpf (0-2); Squamous Epithelial Cell Urine None Seen /hpf (Few); WBC Urine 0-3 /hpf (0-3)
[2025-03-11 07:33] LABS: Alanine Aminotransferase 21 U/L (6-50); Albumin Level 4.6 g/dL (3.5-5.1); Alkaline Phosphatase 80 U/L (38-126); Anion Gap 7 mmol/L (4-12); Aspartate Amino Transferase 32 U/L (17-59); Bilirubin,Total 0.6 mg/dL (0.2-1.3); Blood Urea Nitrogen 10 mg/dL (9-20); Calcium 9.7 mg/dL (8.4-10.2); Carbon Dioxide 30 mmol/L (22-30); Chloride 101 mmol/L (98-107); Cholesterol 194 mg/dL (0-200); Estimated Glomerular Filt Rate > 60; Glucose 97 mg/dL (65-110); HDL Direct 79 mg/dL; LDL Cholesterol Calculated 95 mg/dL (<130); Osmolality Calculated 285 mOsm/kg (285-295); Potassium 3.9 mmol/L (3.4-5.0); Sodium 138 mmol/L (137-145); Total Protein 7.6 g/dL (6.3-8.2); Triglycerides 100 mg/dL (<150)
[2025-03-11 08:03] LABS: Prostate Specific Antigen 2.2 ng/mL (< OR = 4.0)
== END 2025-03-11 06:55 | disposition home or self-care (01) ==
LOC: CHSLAB 06:57
PROVIDERS: PCP Internal Medicine; Visit Provider Internal Medicine
DX: Z00.00 Encounter for general adult medical examination without abnormal findings (principal); Z12.5 Encounter for screening for malignant neoplasm of prostate
CPT/HCPCS: 36415; 80053; 80061; 81001; 84153; 84443; 85025; G0103